=== PATIENT | female | born 1970 | race Caucasian/White ===

== ENCOUNTER 2020-08-02 17:39 | Outpatient (CLI) | payer OTHER, SELFPAY ==
--- NOTE | ~2020-08-02 | MM_ITS ---
EXAMINATION: MM screening cherelle BI w cathy HISTORY: Screening TECHNIQUE: Craniocaudal and mediolateral oblique 3-D tomosynthesis images were obtained and synthetic 2-D images were generated. CAD analysis was submitted and interpreted. COMPARISON: No prior mammogram is available for comparison at this institution. BREAST PARENCHYMAL COMPOSITION: There are scattered areas of fibroglandular density. FINDINGS: There is a cluster of indeterminate calcifications in the lower central aspect of the right breast with possible architectural distortion. There is a subareolar mass with inversion of the left nipple. There are bilateral tissue markers from previous benign biopsies. IMPRESSION: 1. Clustered indeterminate right breast calcifications with possible architectural distortion. Left b reast subareolar mass with inverted nipple. 2. Additional mammographic views and possible breast ultrasound are recommended. BI-RADS Category 0: Incomplete: Needs additional imaging evaluation. Reviewed, dictated and finalized at location A. IMPRESSION: 1. Clustered indeterminate right breast calcifications with possible architectu ral distortion. Left breast subareolar mass with inverted nipple. 2. Additional mammographic views and possible breast ultrasound are recommended . BI-RADS Category 0: Incomplete: Needs additional imaging evaluation.
== END 2020-08-02 17:40 | disposition home or self-care (01) ==
PROVIDERS: PCP Nurse Practitioner Family; Visit Provider Nurse Practitioner Family
DX: Z12.31 Encounter for screening mammogram for malignant neoplasm of breast (principal); R92.8 Other abnormal and inconclusive findings on diagnostic imaging of breast
CPT/HCPCS: 77063; 77067

== ENCOUNTER 2020-09-26 12:00 | Outpatient (CLI) | payer OTHER, SELFPAY ==
--- NOTE | ~2020-09-26 | CT_ITS ---
EXAMINATION: CT abdomen pelvis wo/w con EXAM DATE: 09/26/2020 12:52 INDICATION: Right lower quadrant, right flank pain. TECHNIQUE: Spiral CT of the abdomen and pelvis was performed without and then with intravenous inject ion of 100 mL Omnipaque 350. Axial, coronal and sagittal images of the abdomen and pelvis were revi ewed. The dose-length product (DLP) for this examination was 774.22 mGy-cm. The exposure was tailor ed according to patient size (auto mA exposure control), and iterative reconstruction (ASIR) was used as additional dose reduction technique. There is no prior study for comparison. FINDINGS: There is a small right liver lobe hemangioma measuring 1.4 cm, lesion demonstrating periphe ral nodular enhancement. The liver, spleen, adrenal glands and pancreas are otherwise unremarkable. Gallbladder is unremarkable. No biliary obstruction. No nephrolithiasis on precontrast scan. Portal and splenic veins are patent. Kidneys enhance symmetrically. There is no hydronephrosis. The tetlin mary ellen is unremarkable. The bladder is unremarkable. There is no retroperitoneal or pelvic lymphadeno sandoval. The appendix is normal. The stomach and small bowel are unremarkable. There is expected amount of c olonic stool. No free intraperitoneal gas. The heart is normal in size. There are no pericardial or pleural effusions. The lung bases are unremarkable. The bones are unremarkable. IMPRESSION: 1. No nephrolithiasis, hydronephrosis or acute intra-abdominal findings. 2. Small liver hemangioma. Reviewed, dictated and finalized at location B.
== END 2020-09-26 12:01 | disposition home or self-care (01) ==
LOC: ANHIMG 12:05
PROVIDERS: PCP Family Medicine; Visit Provider Family Medicine
DX: M54.9 Dorsalgia, unspecified (principal); R10.31 Right lower quadrant pain; Z87.442 Personal history of urinary calculi
CPT/HCPCS: 74178; Q9967

== ENCOUNTER 2020-09-27 09:20 | Outpatient (CLI) | payer OTHER, SELFPAY ==
[2020-09-27 09:38] LABS: Basophils Percent Auto 0.7 % (0.2-1.2); Eosinophils Absolute Auto 0.3 K/mm3 (0-0.3); Eosinophils Percent Auto 8.3 % (0-4.4); Hematocrit 46.5 % (37.0-47.0); Hemoglobin 14.7 g/dL (12.0-15.0); Immature Granulocyte Absolute 0.01 K/mm3 (0.00-0.031); Immature Granulocyte Percent A 0.2 % (0-0.5); Lymphocytes Absolute Auto 0.89 K/mm3 (0.9-3.2); Lymphocytes Percent Auto 21.7 % (18.3-44.2); Mean Corpuscular HGB Conc 31.6 g/dl (32-36); Mean Corpuscular Hemoglobin 27.8 pg (26-34); Mean Corpuscular Volume 88.1 fl (80-100); Mean Platelet Volume 10.2 fl (7.4-10.4); Monocytes Absolute Auto 0.4 K/mm3 (0.1-0.6); Monocytes Percent Auto 9.5 % (2.6-8.5); Neutrophils Absolute Auto 2.4 K/mm3 (1.3-6.7); Neutrophils Percent Auto 59.6 % (45.5-73.1); Platelet Count Result 238 k/mm3 (150-375); Red Blood Count 5.28 M/mm3 (4.2-5.4); Red Cell Distribution Width 13.2 % (11.5-14.5); White Blood Count 4.1 K/mm3 (4.5-10.0)
[2020-09-27 09:58] LABS: Alanine Aminotransferase 25 U/L (4-35); Albumin Level 4.7 g/dL (3.5-5.1); Alkaline Phosphatase 95 U/L (38-126); Anion Gap 10 mmol/L (8-16); Aspartate Amino Transferase 27 U/L (14-36); Bilirubin,Total 0.6 mg/dL (0.2-1.3); Blood Urea Nitrogen 16 mg/dL (7-17); Calcium 9.6 mg/dL (8.4-10.2); Carbon Dioxide 27 mmol/L (22-30); Chloride 104 mmol/L (98-107); Cholesterol 183 mg/dL (0-200); Estimated Glomerular Filt Rate 58; Glucose 100 mg/dL (65-110); HDL Direct 46 mg/dL; Sodium 141 mmol/L (137-145); Triglycerides 111 mg/dL (<150)
[2020-09-27 10:09] LABS: LDL Cholesterol Direct 90 mg/dL
[2020-09-27 13:39] LABS: Free T4 Free Thyroxine Reflex 1.65 ng/dL (0.78-2.19)
[2020-09-27 14:36] LABS: Total Triiodothyronine (T3) 1.37 NG/ML (0.97-1.69)
[2020-10-01 16:55] LABS: Vitamin D 1,25 (OH)2 Total 47 pg/mL (18-72); Vitamin D2 1,25 (OH)2 <8 pg/mL; Vitamin D3 1,25 (OH)2 47 pg/mL
== END 2020-09-27 09:21 | disposition home or self-care (01) ==
LOC: ANHLAB 09:23
PROVIDERS: PCP Family Medicine; Visit Provider Nurse Practitioner Family
DX: E03.9 Hypothyroidism, unspecified (principal); E55.9 Vitamin D deficiency, unspecified; Z13.220 Encounter for screening for lipoid disorders
CPT/HCPCS: 36415; 80053; 80061; 82652; 84439; 84443; 84480; 85025

== ENCOUNTER 2020-10-27 13:03 | Outpatient (CLI) | payer OTHER, SELFPAY ==
--- NOTE | ~2020-10-27 | MM_ITS ---
EXAMINATION: MM diagnostic cherelle BI w cathy HISTORY: Left breast mass and indeterminate right breast calcifications on screening mammogram TECHNIQUE: Additional 3-D tomosynthesis images of the breasts were performed and synthetic 2-D images were generated. Magnification views are also obtained. CAD analysis was submitted and interpreted. COMPARISON: 08/02/2020,02/16/2019, 02/03/2019 BREAST PARENCHYMAL COMPOSITION: There are scattered areas of fibroglandular density. FINDINGS: Left breast: There is a 2.3 cm spiculated, irregular, high density mass in the subareolar aspect of t he breast. Right breast: Punctate calcifications are present in the middle third of the lower breast at the 6:00 location 5 cm from the nipple. These appear be associated with a subtle area of architectural distor tion. IMPRESSION: 1. Bilateral breast findings as described above. Patient reportedly has history of multiple breast bi opsies and surgeries, some of which may have occurred in the interval between screening mammograms. T he subareolar left breast mass could reflect postoperative change and hematoma in the right breast ar chitectural distortion could also reflect excisional biopsy change. Recommend correlation with surgic al history. 2. In addition, bilateral limited breast ultrasound is recommended. BI-RADS Category 0: Incomplete: Needs additional imaging evaluation. Reviewed, dictated and finalized at location A. IMPRESSION: 1. Bilateral breast findings as described above. Patient reportedly has history of multiple breast biopsies and surgeries, some of which may have occurred in the interval between screening mammograms. The subareolar left breast mass coul d reflect postoperative change and hematoma in the right breast architectural d istortion could also reflect excisional biopsy change. Recommend correlation wi surgical history. 2. In addition, bilateral limited breast ultrasound is recommended. BI-RADS Category 0: Incomplete: Needs additional imaging evaluation.
== END 2020-10-27 13:04 | disposition home or self-care (01) ==
LOC: ANHIMG 13:06
PROVIDERS: PCP Family Medicine; Visit Provider Family Medicine
DX: R92.8 Other abnormal and inconclusive findings on diagnostic imaging of breast (principal)
CPT/HCPCS: 77062; 77066; G0279

== ENCOUNTER 2020-11-10 11:15 | Outpatient (CLI) | payer OTHER, SELFPAY ==
--- NOTE | ~2020-11-10 | US_ITS ---
US breast BI limited DATE: 11/10/2020 12:10 INDICATION: 1.) 2.3 cm spiculated irregular high density mass in subareolar left breast on 10/27/2020 diagnostic m ammogram 2.) Subtle area of architectural distortion and punctate calcifications in the middle third of the lo wer breast at 6:00 5 cm from nipple on 10/27/2020 bilateral diagnostic mammogram TECHNIQUE: Bilateral ultrasound examination with color flow imaging, limited to 5-7:00 area on the ri ght subareolar area on the left COMPARISON: 10/21/2020 diagnostic bilateral mammogram 08/02/2020 bilateral digital screening mammogram FINDINGS: Right breast: No suspicious abnormalities are identified at C5-7 o'clock region. Left breast: There is an approximately 13 x 20 mm irregular heterogeneous hypoechoic mass with recruiting internship al vascularity and posterior shadowing in the subareolar area of the left breast, highly suggestive o f malignancy. IMPRESSION: BI-RADS Category 5: Highly suggestive of malignancy. Appropriate action should be taken Ultrasound-guided biopsy of left breast subareolar lesion is recommended. Dr. Wright telephoned the BI-RADS Category 5 report and ultrasound guided biopsy recommendation on the left breast subareolar lesion on 11/20/2020 at 1220 hours to [facility]. Reviewed, dictated and finalized at Location A. Reviewed, dictated and finalized at location A. IMPRESSION: BI-RADS Category 5: Highly suggestive of malignancy. Appropriate ac tion should be taken Ultrasound-guided biopsy of left breast subareolar lesion is recommended. Dr. Wright telephoned the BI-RADS Category 5 report and ultrasound guided biopsy recommendation on the left breast subareolar lesion on 11/20/2020 at 1220 hours to [facility].
== END 2020-11-10 11:16 | disposition home or self-care (01) ==
LOC: ANHIMG 11:17
PROVIDERS: PCP Family Medicine; Visit Provider Nurse Practitioner Family
DX: R92.8 Other abnormal and inconclusive findings on diagnostic imaging of breast (principal); N63.0 Unspecified lump in unspecified breast; R92.1 Mammographic calcification found on diagnostic imaging of breast
CPT/HCPCS: 76642

== ENCOUNTER 2020-11-22 09:21 | Outpatient (CLI) | payer OTHER, SELFPAY ==
--- NOTE | ~2020-11-22 | MMUS_ITS ---
EXAMINATION: US breast biopsy LT w image, MM post biopsy invasive LT DATE: 11/22/2020 10:50 (accession [id number]), 11/22/2020 10:34 (accession [id number]) INDICATION: Indeterminate subareolar left breast mass Ultrasound-guided core biopsy is requested to e valuate for malignancy. TECHNIQUE AND FINDINGS: The risks and potential benefits of the procedure were discussed with the patient including bleeding and infection. A time out was performed. The skin of the left breast was prepared and draped in usual sterile fashion. 1% lidocaine was used for superficial anesthesia. 1% lidocaine with epinephrine was used for deep anesthesia. A vacuum-assisted biopsy gun needle was advanced through to the outer edge of the region of interest from a lateral approach utilizing sonographic guidance. A total of four tissue core samples were obta ined through the lesion. A tissue marker clip was then placed at the biopsy site. Hemostasis was achi eved. A sterile bandage was applied. The patient tolerated procedure well and there was no evidence of immediate complication. The patient was given verbal instructions to return to the Emergency Department in the event of severe breast pa in or rapid breast enlargement. A two view left breast mammogram was obtained to document tissue ayanna er clip placement. IMPRESSION: 1. Successful ultrasound-guided vacuum-assisted biopsy of left breast mass with tissue marker placeme nt. Reviewed, dictated and finalized at location A. IMPRESSION: 1. Successful ultrasound-guided vacuum-assisted biopsy of left breast mass with tissue marker placement.
== END 2020-11-22 09:22 | disposition home or self-care (01) ==
LOC: ANHIMG 09:22
PROVIDERS: PCP Family Medicine; Visit Provider Nurse Practitioner Family
DX: N63.20 Unspecified lump in the left breast, unspecified quadrant (principal); R92.8 Other abnormal and inconclusive findings on diagnostic imaging of breast
CPT/HCPCS: 19083; 88305; 88360; A4648

== ENCOUNTER 2020-12-29 13:16 | Outpatient (CLI) | payer OTHER, SELFPAY ==
[2020-12-29 13:52] LABS: Hematocrit 45.5 % (37.0-47.0); Hemoglobin 14.5 g/dL (12.0-15.0); Mean Corpuscular HGB Conc 31.9 g/dl (32-36); Mean Corpuscular Hemoglobin 28.4 pg (26-34); Mean Corpuscular Volume 89.2 fl (80-100); Mean Platelet Volume 10.5 fl (7.4-10.4); Platelet Count Result 243 k/mm3 (150-375); White Blood Count 5.5 K/mm3 (4.5-10.0)
[2020-12-29 14:00] LABS: Alanine Aminotransferase 25 U/L (4-35); Albumin Level 4.7 g/dL (3.5-5.1); Alkaline Phosphatase 84 U/L (38-126); Anion Gap 7 mmol/L (8-16); Aspartate Amino Transferase 27 U/L (14-36); Bilirubin,Total 0.3 mg/dL (0.2-1.3); Blood Urea Nitrogen 17 mg/dL (7-17); Calcium 9.6 mg/dL (8.4-10.2); Carbon Dioxide 31 mmol/L (22-30); Chloride 105 mmol/L (98-107); Estimated Glomerular Filt Rate > 60; Glucose 98 mg/dL (65-110); Potassium 4.1 mmol/L (3.4-5.0); Sodium 143 mmol/L (137-145)
== END 2020-12-29 13:17 | disposition home or self-care (01) ==
LOC: ANHLAB 13:18
PROVIDERS: PCP Nurse Practitioner Family; Visit Provider Nurse Practitioner
DX: E03.9 Hypothyroidism, unspecified (principal); Z13.0 Encounter for screening for diseases of the blood and blood-forming organs and certain disorders involving the immune mechanism
CPT/HCPCS: 36415; 80053; 84443; 85027

== ENCOUNTER 2021-07-25 10:09 | Outpatient (CLI) | payer OTHER, SELFPAY ==
[2021-07-27 12:52] LABS: Glutamic acid decarboxylase AA <5 IU/mL (<5)
[2021-07-27 22:57] LABS: Vitamin A 48 mcg/dL (38-98)
[2021-07-28 20:44] LABS: Vitamin K1 702 pg/mL (130-1500)
== END 2021-07-25 10:10 | disposition home or self-care (01) ==
LOC: ANHLAB 10:14
PROVIDERS: PCP Nurse Practitioner Family; Visit Provider Nurse Practitioner Family
DX: N95.9 Unspecified menopausal and perimenopausal disorder (principal); Z13.0 Encounter for screening for diseases of the blood and blood-forming organs and certain disorders involving the immune mechanism; E56.8 Deficiency of other vitamins; R53.83 Other fatigue; E03.8 Other specified hypothyroidism; Z13.1 Encounter for screening for diabetes mellitus
CPT/HCPCS: 36415; 84590; 84597; 86341

== ENCOUNTER 2021-10-18 08:55 | Outpatient (CLI) | payer OTHER, SELFPAY ==
[2021-10-18 09:58] LABS: Basophils Percent Auto 0.4 % (0.2-1.2); Eosinophils Absolute Auto 0.3 K/mm3 (0-0.3); Hematocrit 44.2 % (37.0-47.0); Hemoglobin 13.7 g/dL (12.0-15.0); Immature Granulocyte Absolute 0.01 K/mm3 (0.00-0.031); Immature Granulocyte Percent A 0.2 % (0-0.5); Lymphocytes Absolute Auto 1.06 K/mm3 (0.9-3.2); Lymphocytes Percent Auto 23.7 % (18.3-44.2); Mean Corpuscular Hemoglobin 27.7 pg (26-34); Mean Corpuscular Volume 89.5 fl (80-100); Mean Platelet Volume 10.9 fl (7.4-10.4); Monocytes Absolute Auto 0.4 K/mm3 (0.1-0.6); Monocytes Percent Auto 9.4 % (2.6-8.5); Neutrophils Absolute Auto 2.7 K/mm3 (1.3-6.7); Neutrophils Percent Auto 60.3 % (45.5-73.1); Platelet Count Result 216 k/mm3 (150-375); Red Blood Count 4.94 M/mm3 (4.2-5.4); Red Cell Distribution Width 13.5 % (11.5-14.5); White Blood Count 4.5 K/mm3 (4.5-10.0)
[2021-10-18 10:40] LABS: Total Triiodothyronine (T3) 1.41 NG/ML (0.97-1.69)
[2021-10-18 11:00] LABS: Vitamin B12 > 1000.0 pg/mL (239-931)
[2021-10-18 13:38] LABS: Free T4 Free Thyroxine Reflex 0.94 ng/dL (0.78-2.19)
[2021-10-21 12:11] LABS: Insulin Level Total 4.8 uIU/mL (<=19.6)
[2021-10-24 22:16] LABS: Estrone 17 pg/mL
[2021-10-24 23:36] LABS: Estradiol, Ultrasensitive <4 pg/mL
== END 2021-10-18 08:56 | disposition home or self-care (01) ==
PROVIDERS: PCP Nurse Practitioner Family; Referring Provider Obstetrics & Gynecology
DX: M95.9 Acquired deformity of musculoskeletal system, unspecified (principal); E03.8 Other specified hypothyroidism; N95.9 Unspecified menopausal and perimenopausal disorder; Z13.0 Encounter for screening for diseases of the blood and blood-forming organs and certain disorders involving the immune mechanism; R53.83 Other fatigue; Z13.1 Encounter for screening for diabetes mellitus
CPT/HCPCS: 36415; 82542; 82607; 82670; 82679; 83525; 84439; 84443; 84480; 85025

== ENCOUNTER 2022-07-31 09:34 | Outpatient (CLI) | payer OTHER, SELFPAY ==
[2022-07-31 14:24] LABS: Basophils Percent Auto 0.8 % (0.2-1.2); Eosinophils Absolute Auto 0.3 K/mm3 (0-0.3); Eosinophils Percent Auto 8.3 % (0-4.4); Hematocrit 42.5 % (37.0-47.0); Immature Granulocyte Absolute 0.01 K/mm3 (0.00-0.031); Immature Granulocyte Percent A 0.3 % (0-0.5); Lymphocytes Absolute Auto 0.82 K/mm3 (0.9-3.2); Lymphocytes Percent Auto 20.6 % (18.3-44.2); Mean Corpuscular HGB Conc 30.6 g/dl (32-36); Mean Corpuscular Hemoglobin 28.9 pg (26-34); Mean Corpuscular Volume 94.4 fl (80-100); Mean Platelet Volume 11.2 fl (7.4-10.4); Monocytes Absolute Auto 0.4 K/mm3 (0.1-0.6); Monocytes Percent Auto 9.3 % (2.6-8.5); Neutrophils Absolute Auto 2.4 K/mm3 (1.3-6.7); Neutrophils Percent Auto 60.7 % (45.5-73.1); Platelet Count Result 247 k/mm3 (150-375); Red Cell Distribution Width 11.7 % (11.5-14.5)
[2022-07-31 14:25] LABS: Alanine Aminotransferase 18 U/L (6-35); Albumin Level 4.4 g/dL (3.5-5.1); Alkaline Phosphatase 66 U/L (38-126); Anion Gap 2 mmol/L (8-16); Aspartate Amino Transferase 30 U/L (14-36); Bilirubin,Total 0.9 mg/dL (0.2-1.3); Blood Urea Nitrogen 17 mg/dL (7-17); Calcium 9.1 mg/dL (8.4-10.2); Carbon Dioxide 32 mmol/L (22-30); Chloride 108 mmol/L (98-107); Cholesterol 166 mg/dL (0-200); Estimated Glomerular Filt Rate > 60; Glucose 82 mg/dL (65-110); HDL Direct 46 mg/dL; Potassium 4.2 mmol/L (3.4-5.0); Sodium 142 mmol/L (137-145); Triglycerides 92 mg/dL (<150)
[2022-07-31 14:37] LABS: LDL Cholesterol Direct 88 mg/dL
[2022-07-31 14:57] LABS: Vitamin D 25 Hydroxy 50.8 ng/mL
[2022-07-31 16:51] LABS: Free T4 Free Thyroxine Reflex 1.03 ng/dL (0.78-2.19)
[2022-07-31 18:00] LABS: Total Triiodothyronine (T3) 1.51 NG/ML (0.97-1.69)
== END 2022-07-31 09:35 | disposition home or self-care (01) ==
LOC: ANHGOSHLAB 09:34
PROVIDERS: PCP Nurse Practitioner Family; Visit Provider Nurse Practitioner Family
DX: Z00.00 Encounter for general adult medical examination without abnormal findings (principal); E55.9 Vitamin D deficiency, unspecified; Z13.220 Encounter for screening for lipoid disorders
CPT/HCPCS: 36415; 80053; 80061; 82306; 84439; 84443; 84480; 85025

== ENCOUNTER 2022-09-13 12:30 | Outpatient (RCR) | payer OTHER, SELFPAY ==
--- NOTE | 2022-08-14 13:38 | OTOPEVAL1 ---
Assessment and note entered by FAWN [place]/Demian, CHT Evaluation Information Assessment Status Evaluation Diagnosis Right distal radius fracture Onset 05/29/22 Subjective Information Pt sustained a right wrist fracture after a fall onto an outstretched hand. She is s/p closed reduction and immobilization x8 weeks. She has not worn any sort of immobilization x2 weeks. She is right hand dominant. She reports she has been trying to use the hand, but having difficulties with dropping items. Reports weakness and being unable to filler picker heavier items. She reports residual stiffness with being unable to turn her palm up. 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 Needs to be able to push a wheelchair and help patients transfer. Reported Pain Level Pain Score 0: Self Report Additional Pain Score Comments No pain pre, during, or post session today. Assessment OT Clinical Summary Patient referred to outpatient OT following a right distal radius fracture s/p closed reduction and immobilization. She is presenting with functional ADL deficits due to stiffness and weakness. Skilled OT indicated to facilitate optimal functional use of the right UE through HEP instruction and progression, therapeutic exercise , manual therapy, and thermal modalities. Plan of Care Interventions Therapeutic Exercise,Manual Therapy,Therapeutic Activities,Hot Pack/Cold Pack,Paraffin OT Services Indicated Yes Treatment Frequency and 2x/week for 4 weeks Duration These treatments will address the objective and functional deficits as defined above. The patient will be advanced safely and appropriately in order for the patient to progress towards his/her prior level of function. Additional exercises will be introduced and as well as a comprehensive home exercise program upon discharge, if needed, ?to ensure carryover of functional gains achieved in the clinic. This treatment plan has been reviewed and agreement upon by the patient.
--- NOTE | 2022-08-14 13:39 | OPREHPOC ---
Outpatient Therapy Plan of Care This is a Multidisciplinary Plan of Care that may contain components documented by all disciplines (PT, OT, and ST.) OT Problem 1 OT Problem #1 Knowledge Deficit OT Goal 1 Goal 1. Patient to be independent with instructed materials. Target Visit 8 OT Problem 2 OT Problem #2 Impaired Range of Motion OT Goal 1 Goal Increase active ROM of the right upper extremity: 1. Supination to 65 degrees. 2. Wrist extension to 50 degrees. 3. Composite thumb flexion to be able to touch the base of digit V. Target Visit 8 OT Problem 3 OT Problem #3 Impaired Strength OT Goal 1 Goal 1. 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 2. Be able to complete gross wrist strengthening with 2 lb. free weight x20 reps. Target Visit 8
--- NOTE | 2022-09-03 13:17 | PCOTNOTE ---
Patient called & cancelled scheduled appointment this date due to being out of town.
--- NOTE | 2022-09-06 10:01 | PCOTNOTE ---
Patient called & cancelled scheduled appointment this date due to being out of town.
--- NOTE | 2022-09-13 13:06 | OTOPDC ---
Assessment and note entered by Marquez Bentley, HEIDER/Demian, CHT Evaluation Information Assessment Status Discharge Diagnosis Right distal radius fracture Onset 05/29/22 Subjective Information s/p closed reduction and immobilization. She reports she is using her right hand more without thinking about it . She reports she is now back to writing, shaking people's hands, and lifting everyday objects with the right UE again. She is no longer dropping items anymore. She states she has been cleared by Dr. Qureshi to go back to work and she feels ready. We reviewed her HEP today and reviewed which ones to continue to focus on - she reports she is ready for discharge. Supination improved from neural to 40/45 degrees. Pronation remained WFL. Wrist extension improved from 10 to 45 degrees. Wrist flexion improved from 45 to 55 degrees. 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 Reported Pain Level Pain Score 0: Self Report Assessment OT Clinical Summary Patient referred to outpatient OT following a right distal radius fracture s/p closed reduction and immobilization. She has made good functional progress with therapy and is reporting that she is back to using her arm for everything . She is going back to work on Saturday and reports she is going to continue to do her HEP. No further skilled OT indicated at this time. Plan of Care OT Services Indicated No
== END 2022-09-14 11:31 | disposition home or self-care (01) ==
LOC: ANHOT 12:30
PROVIDERS: PCP Nurse Practitioner Family; Visit Provider Orthopaedic Surgery
DX: S52.501D Unspecified fracture of the lower end of right radius, subsequent encounter for closed fracture with routine healing (principal)
CPT/HCPCS: 97018; 97110; 97140; 97165

== ENCOUNTER 2023-11-11 09:24 | Outpatient (CLI) | payer OTHER, SELFPAY ==
[2023-11-11 14:52] LABS: Basophils Percent Auto 0.8 % (0.2-1.2); Eosinophils Absolute Auto 0.4 K/mm3 (0-0.3); Eosinophils Percent Auto 10.4 % (0-4.4); Hematocrit 44.3 % (37.0-47.0); Hemoglobin 13.6 g/dL (12.0-15.0); Lymphocytes Absolute Auto 0.81 K/mm3 (0.9-3.2); Mean Corpuscular HGB Conc 30.7 g/dl (32-36); Mean Corpuscular Hemoglobin 28.6 pg (26-34); Mean Corpuscular Volume 93.1 fl (80-100); Mean Platelet Volume 11.5 fl (7.4-10.4); Monocytes Absolute Auto 0.4 K/mm3 (0.1-0.6); Monocytes Percent Auto 9.4 % (2.6-8.5); Neutrophils Absolute Auto 2.3 K/mm3 (1.3-6.7); Neutrophils Percent Auto 58.4 % (45.5-73.1); Platelet Count Result 223 k/mm3 (150-375); Red Blood Count 4.76 M/mm3 (4.2-5.4); Red Cell Distribution Width 11.8 % (11.5-14.5); White Blood Count 3.9 K/mm3 (4.5-10.0)
[2023-11-11 15:36] LABS: Alanine Aminotransferase 15 U/L (6-35); Albumin Level 4.4 g/dL (3.5-5.1); Alkaline Phosphatase 68 U/L (38-126); Anion Gap 10 mmol/L (4-12); Aspartate Amino Transferase 68 U/L (14-36); Bilirubin,Total 0.4 mg/dL (0.2-1.3); Blood Urea Nitrogen 17 mg/dL (7-17); Calcium 9.8 mg/dL (8.4-10.2); Carbon Dioxide 29 mmol/L (22-30); Chloride 102 mmol/L (98-107); Cholesterol 165 mg/dL (0-200); Estimated Glomerular Filt Rate > 60; Glucose 92 mg/dL (65-110); HDL Direct 53 mg/dL; Potassium 4.4 mmol/L (3.4-5.0); Sodium 141 mmol/L (137-145); Triglycerides 69 mg/dL (<150)
[2023-11-11 15:47] LABS: LDL Cholesterol Direct 92 mg/dL
[2023-11-11 17:02] LABS: Free T4 Free Thyroxine 0.81 ng/mL (0.78-2.19); Vitamin D 25 Hydroxy 38.6 ng/mL
[2023-11-12 11:49] LABS: Triiodothyronine T3 Free 3.1 pg/mL (2.3-4.2)
== END 2023-11-11 09:25 | disposition home or self-care (01) ==
LOC: ANHGOSHLAB 09:25
PROVIDERS: PCP Nurse Practitioner Family; Visit Provider Nurse Practitioner Family
DX: E03.9 Hypothyroidism, unspecified (principal); E55.9 Vitamin D deficiency, unspecified; E78.5 Hyperlipidemia, unspecified
CPT/HCPCS: 36415; 80053; 80061; 82306; 84439; 84443; 84481; 85025